=== PATIENT | female | born 1975 | race Caucasian/White ===

== ENCOUNTER → 2017-04-19 | Outpatient (CLI) | payer MEDICARE, MEDICAID, SELFPAY | PROVIDERS: Visit Provider Obstetrics & Gynecology | DX: R92.8 Other abnormal and inconclusive findings on diagnostic imaging of breast (principal) | CPT/HCPCS: 76641; 77065; G0206 ==

== ENCOUNTER → 2017-05-16 14:33 | Outpatient (CLI) | payer MEDICARE, SELFPAY ==
[2017-05-16 14:38] LABS: Microscopic, Urine URINE MICROSCOPIC (MICROSCOPIC)
[2017-05-16 14:49] LABS: Appearance,Urine CLEAR (Clear); Basophils # 0.1 K/mm3 (0-0.2); Basophils % 0.7 % (0.1-2.0); Bilirubin,Urine Negative (Negative); Blood, Urine TRACE-L (Negative); Color,Urine YELLOW (Yellow); Eosinophils # 0.2 K/mm3 (0.0-0.4); Eosinophils % 1.6 % (0.1-12.0); Glucose,Urine (UA) Negative (Negative); Hematocrit 35.8 % (37.0-47.0); Hemoglobin 10.9 g/dL (12.2-16.2); Ketones,Urine Negative (Negative); Leukocyte Esterase,Urine Negative (Negative); Lymphocytes # 2.8 K/mm3 (0.7-4.5); Mean Corpuscular HGB Conc 30.5 g/dL (31.8-35.4); Mean Corpuscular Volume 78.7 fl (81-99); Mean Platelet Volume 7.3 fl (7.4-10.4); Monocytes % 10.3 % (1.7-9.3); Neutrophils # 5.3 K/mm3 (1.8-7.8); Neutrophils % 57.3 % (37.0-80.0); Nitrate,Urine Negative (Negative); Platelet Count 381 K/mm3 (142-424); Protein,Urine Negative (Negative); Red Blood Count 4.55 M/mm3 (4.20-5.40); Specific Gravity, Urine 1.015 (1.005-1.030); Urobilinogen,Urine 0.2 EU/dl (0.2); White Blood Count 9.3 K/mm3 (4.8-10.8)
[2017-05-16 15:00] LABS: Urine Pregnancy, HCG Qual. Negative (Negative)
[2017-05-16 15:42] LABS: Bacteria,Urine Trace /lpf; RBC,Urine Occasional #/hpf (0-3); WBC,Urine Occasional #/hpf (0-3)
[2017-05-16 16:40] LABS: Alanine Aminotransferase 19 U/L (12-78); Albumin/Globulin Ratio 1.3 (1.1-1.8); Alkaline Phosphatase 74 U/L (46-116); Anion Gap 12.4 mEq/L (5-15); Aspartate Amino Transferase 15 U/L (15-37); Bilirubin,Total 0.3 mg/dL (0.2-1.0); Blood Urea Nitrogen 20 mg/dL (7-18); Calcium 9.2 mg/dL (8.5-10.1); Carbon Dioxide 25 mmol/L (21.0-32.0); Chloride 107 mmol/L (98-107); Creatinine,Serum 0.94 mg/dL (0.55-1.02); Estimated Glomerular Filt Rate > 60 ml/min (>60); GFR (African American) > 60 ML/MIN (>60); Globulin 3.1 gm/dl (1.3-3.2); Glucose 82 mg/dL (74-106); Potassium 4.4 mmoL/L (3.5-5.1); Sodium 140 mmol/L (136-145); Total Protein,Serum 7.1 gm/dL (6.4-8.2)
== END ==
PROVIDERS: PCP Physician Assistant; Visit Provider Obstetrics & Gynecology
DX: N94.89 Other specified conditions associated with female genital organs and menstrual cycle (principal); Z01.812 Encounter for preprocedural laboratory examination
CPT/HCPCS: 36415; 80053; 81001; 81025; 85025

== ENCOUNTER 2017-05-21 06:15 | Inpatient (IN) | payer MEDICARE, SELFPAY ==
[2017-05-16 15:00] VITALS: BMI 39.9
[2017-05-21] VITALS (24 sets, daily range): BP systolic 102–142; BP diastolic 59–91; PULSE 69–108; RESP 12–18; TEMP 36.6–43; O2SAT 95–99
--- NOTE | 2017-05-21 07:02 | HMH.ANESCL ---
[facility] Anesthesia Checklist - Structural Data Planned Operative Procedure/s: exploratory laparotomy, peritoneal washing, left so, appy Consent for Planned Operative Procedure(s) Verified: Yes Verified Documents: Surgical Consent - NPO Status Verified Time NPO: 00:00 - Airway Assessment C-Spine Mobility Assessed: Yes (MP2) TMJ Mobility Assessed: Yes Dentition: Good Dentition - Anesthesia Plan Anesthesia Risk discussed: Yes Anesthesia Plan: Verified ASA Class: II Anesthesia Type: General [facility] Anesthesia HX I have reviewed the patient's past medical history: Yes Medical History: Reports:: Asthma, Gastroesophageal Reflux Disease, Hyperlipidemia, Seizures (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 Ankle) *Family Hx:: Cancer, Coronary Artery Disease, Diabetes, Heart Attack, Hyperlipidemia, Hypertension
--- NOTE | 2017-05-21 07:05 | P.PN_ITS ---
[facility] Anesthesia Checklist - Structural Data Planned Operative Procedure/s: exploratory laparotomy, peritoneal washing, left so, appy Consent for Planned Operative Procedure(s) Verified: Yes Verified Documents: Surgical Consent - NPO Status Verified Time NPO: 00:00 - Airway Assessment C-Spine Mobility Assessed: Yes (MP2) TMJ Mobility Assessed: Yes Dentition: Good Dentition - Anesthesia Plan Anesthesia Risk discussed: Yes Anesthesia Plan: Verified ASA Class: II Anesthesia Type: General [facility] Anesthesia HX I have reviewed the patient's past medical history: Yes Medical History: Reports:: Asthma, Gastroesophageal Reflux Disease, Hyperlipidemia, Seizures (6-7 years ago-- AVM (frontal lobe)) Denies:: Diabetes Mellitus Type 1, Diabetes Mellitus Type 2 Other Medical History: Denies: Blood Transfusion Reaction Laterality Cases: Left: Other Other Surgeries: Yes: Other (1992-Lap CholecystX,1999-AVM rupture-Brain,2001- BTL ([facility]),2015- Rt. Ankle) *Family Hx:: Cancer, Coronary Artery Disease, Diabetes, Heart Attack, Hyperlipidemia, Hypertension
--- NOTE | 2017-05-21 09:18 | HMH.ANESI ---
[facility] Anesthesia Record Part I Intake, IV Amount: 1,500 Estimated blood loss (mL): 100 Urine output (mL): 300 Blood Pressure: 133/78 SaO2: 97 Pulse Rate: 69 Respiratory Rate: 12 Temperature: 97.8 F Patient is:: Awake, Stable Stable to PACU at:: 09:15
--- NOTE | 2017-05-21 09:19 | P.PN_ITS ---
[facility] Anesthesia Record Part II Discharge Time: 09:45 Destination: floor PACU nurse assessment reviewed?: Yes Patient Condition:: Good Anesthesia Complications:: None
--- NOTE | 2017-05-21 09:21 | P.OP_ITS ---
Date of procedure: 05/21/17 Pre-op Diagnosis:: 1. Pelvic pain. 2. Left adnexal mass. Post-op diagnosis:: same (Same, plus endometriosis) Procedure performed:: 1. Exploratory laparotomy. 2. Peritoneal washings. 3. Left salpingo-oophorectomy. 4. Fulguration of endometrial implants. Surgeon:: Cb Ramirez MD Deputy Director Of Nursing(s):: [place] Vo SENIOR J2EE DEVELOPER:: [address] Anesthesia: GETA Estimated blood loss (mL): 300 Operative findings:: Left adnexal mass, diffuse endometriotic implants. Operative note:: The patient was prepped and draped in usual fashion and general anesthesia was administered, a lower abdominal midline incision was made and taken down through fat and fascia in the usual fashion, bleeders being clamped and coagulated along the way. The peritoneum was entered with Metzenbaum scissors, and extended above and below. The upper abdomen was explored and found to be normal. The bowel was packed away, and a self-retaining Guevara retractor with bladder blade was placed. Peritoneal washings were carried out and submitted for cytology. The uterus was symmetrically enlarged and boggy, and with surface endometriotic implants. The right tube and ovary appeared normal. On the left side, the ovary was enlarged to 6 cm, and adherent to the left pelvic sidewall. The uterus was fixed in the pelvis. The left ovarian and infundibulopelvic ligament were crossclamped and cut, thus removing the left adnexa. Extensive adhesiolysis was carried out on both sides, and all visible endometriotic implants were fulgurated. The decision was made to leave the uterus and right adnexa in situ. There was no other pathology noted. The peritoneum was grasped with 3 Rosamaria clamps, and closed with a running simple locked suture of 0 Vicryl. The muscle was approximated with a running unlocked suture of 0 Vicryl. The fascia was closed with a running locked suture of #1 Vicryl. The subcutaneous fat and Wendy's fascia were closed with 2 layers of running unlocked 2-0 Vicryl. The skin was closed with a subcuticular suture of 3-0 Vicryl, and appropriately dressed. The urine was clear in the Edwards catheter. The sponge and needle count was correct. The estimated blood loss was 300 cc. The patient tolerated the procedure well, and was taken to PACU in excellent condition. She will be admitted postoperatively. Condition: stable Disposition: floor Specimens:: peritoneal washings, left adnexa Complications:: None
[2017-05-21 10:52] LABS: Hematocrit 32.1 % (37.0-47.0); Hemoglobin 10.1 g/dL (12.2-16.2)
--- NOTE | 2017-05-21 12:10 | HMH.PHAVTE ---
[facility] Pharmacy VTE Monitoring - Patient Demographics Admission date: 05/20/17 Report Date: 05/21/17 Time: 12:10 Allergies/Adverse Reactions: codeine Allergy (Intermediate, Verified 05/16/17 14:58) SOB morphine Adverse Reaction (Mild, Verified 05/16/17 14:58) upset stomach Height: 1.57 m Weight: 98.883 kg - VTE Risk Labs: VTE Related Lab Results Hgb 10.1 g/dL (12.2-16.2) L 05/21/17 10:23 Hct 32.1 % (37.0-47.0) L 05/21/17 10:23 Clinical Trial Participant: No - Prophylaxis Types of VTE Prophylaxis: IPCS Knee High Location of Applied Device: Bilateral Lower Extremeties Pharmacologic Type: Enoxaparin
--- NOTE | 2017-05-21 13:31 | HMH.ACPN ---
Internal Medicine - PN: Subj *Date: 05/21/17 *Time: 13:31 (This is day of surgery. Surgery has been explained to the patient. She is afebrile. Her urine output is good. She continues to have the headache that she has had in the past and I am going to get a consult with Dr. Wheatley while she is in-house. Impression: Stable.) Exam Vital signs and Labs for Last 24 Hours: Temp Pulse Resp BP Pulse Ox 98.2 F 108 H 17 129/78 96 05/21/17 12:41 05/21/17 12:41 05/21/17 12:41 05/21/17 12:41 05/21/17 12:41 Laboratory Results - last 24 hr 05/21/17 10:23: Hgb 10.1 L, Hct 32.1 L I & O for Last 24 hours: Intake & Output 05/19/17 05/20/17 05/21/17 05/22/17 11:59 11:59 11:59 11:59 Intake Total 1750 / 1750 Output Total 202 / 202 Balance 1548 / 1548
[2017-05-21 15:53] LABS: Microscopic,Cath URINE MICROSCOPIC (MICROSCOPIC)
[2017-05-21 16:06] LABS: Appearance,Urine/Cath CLEAR (Clear); Bilirubin,Cath Negative (Negative); Blood, Urine/Cath Negative (Negative); Color,Urine/Cath YELLOW (Yellow); Glucose,Urine/Cath (UA) Negative (Negative); Ketones,Urine/Cath Negative (Negative); Leukocyte Esterase,Cath Negative (Negative); Nitrate,Cath Negative (Negative); PH,Urine/Cath 7.5 (5.0-8.5); Protein,Urine/Cath Negative (Negative); Urobilinogen,Cath 0.2 EU/dl (0.2)
--- NOTE | 2017-05-21 16:15 | SUR.OPER ---
PROCEDURE PERFORMED: EXPLORATORY LAPAROTOMY, LEFT SALPINGO-OOPHERECTOMY, PERITONEAL WASHING, FULGARATION OF ENDOMETRIOSIS
[2017-05-21 16:29] LABS: Amorphous Sediment,Ur/Cath 1+ /lpf; Bacteria,Urine/Cath TRACE /lpf; Mucus,Urine/Cath 3+ /lpf; RBC,Urine/Cath Occasional # /hpf (0-3); WBC,Urine/Cath Occasional #/hpf (0-3)
[2017-05-22 03:45] VITALS: BP 113/55; PULSE 87; RESP 16; TEMP 37.1; O2SAT 98
--- NOTE | 2017-05-22 03:45 | PC.NURSE ---
Pt resting in bed at this time. Pt complained of incisional and left sided pain and abdominal cramping pt rating 8/10 on pain scale. prn pain medication given as well as scheduled torodol and phenergan for nausea. pt tolerated well. lungs clear to auscultate at this time. no cough noted. pt using incentive spirometer without difficulty. heart rate regular. abdominal dressing clean dry and intact. truong catheter patent and draining at bedside. ice water and apple juice provided per request no distress noted at this time will continue to monitor
--- NOTE | 2017-05-22 07:43 | HMH.ACPN ---
Internal Medicine - PN: Subj *Date: 05/22/17 *Time: 07:43 (This is postop day #1. Patient is afebrile. Vital signs stable. Wound clean. Abdomen soft. Urine output good. Edwards has been removed. Hemoglobin 10.1 g, but clinically stable. Impression: Stable.) Exam Vital signs and Labs for Last 24 Hours: Temp Pulse Resp BP Pulse Ox 98.8 F 87 16 113/55 98 05/22/17 03:45 05/22/17 03:45 05/22/17 03:45 05/22/17 03:45 05/22/17 03:45 Laboratory Results - last 24 hr 05/21/17 08:17: Urine Color Yellow, Urine Appearance Clear, Urine pH 7.5, Ur Specific [place] 1.010, Urine Protein Negative, Urine Glucose (UA) Negative, Urine Ketones Negative, Urine Blood Negative, Urine Nitrate Negative, Urine Bilirubin Negative, Urine Urobilinogen 0.2, Ur Leukocyte Esterase Negative, Urine RBC Occasional, Urine WBC Occasional, Ur Squamous Epith Cells 5-10, Urine Bacteria Trace 05/21/17 10:23: Hgb 10.1 L, Hct 32.1 L I & O for Last 24 hours: Intake & Output 05/19/17 05/20/17 05/21/17 05/22/17 11:59 11:59 11:59 11:59 Intake Total 1750 / 1750 1999 Output Total 202 / 3600 / 3600 Balance 1548 / 1548 -1600 / -1600
[2017-05-22 08:00] VITALS: BP 121/77; PULSE 89; RESP 15; TEMP 37.2; O2SAT 96; O2SAT 97
[2017-05-22 12:00] VITALS: BP 131/74; PULSE 90; RESP 15; TEMP 36.9; O2SAT 98
[2017-05-22 16:00] VITALS: BP 110/44; PULSE 92; RESP 15; TEMP 36.8; O2SAT 96
--- NOTE | 2017-05-22 16:02 | PC.NURSE ---
Called and spoke with Dr. Johns reported pt request for prilosec for acid reflux, new order for protonix 40 mg once a day. May also decrease LR to 50ml/hr, change IV dilaudid to 2mg PO every 4 hours PRN for pain.
--- NOTE | 2017-05-22 17:38 | HMH.CONS ---
*Admission Date: 05/20/17 *Chief complaint: Evaluate for headaches *History of present illness: 41-year-old white female admitted to SALES FORCE DEVELOPER service for oophorectomy, which was accomplished yesterday and so far has been uncomplicated. I am asked to consult because of her ongoing headache disorder. She has a long and complex history of headache disorders of her variety of types. 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 She apparently has not had radial neurosurgical follow-up in a while, and has been seeing Dr. Fredy Fernandez at [facility] who has thought part of her headache disorder might be from cervical spine disease, and is contemplating further workup for possible surgical intervention. She is maintained on Topamax with minimal effectiveness, and reports that even before her neurosurgery she had what sounds like complex migraines. She also has had episodes of presyncope and syncopal episodes and has been told she might a seizure disorder but has never had this worked up either. She has recently been in flux as far as her family physician goes and has not seen a primary care physician or thermometer maker over the past 4-5 years. 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 Ankle) Amputation: No - *Social History Educational Level: Attended College Smoking Status: Former smoker Tobacco Type: cigarettes Alcohol Intake: never Substance Use Type: denies use Occupational Status: unemployed, disabled Housing: house Household Members: spouse - Psychiatric History Expresses thoughts of harming self/others: None Suicide Plan Description: No Plan *Family Hx:: Cancer, Coronary Artery Disease, Diabetes, Heart Attack, Hyperlipidemia, Hypertension Review of Systems - Eyes Reports blurry vision, Denies blind spots, Denies change in vision, Denies double vision, Denies discharge, Denies dry eyes, Denies bulging eyes - ENT Reports neck pain, Denies abnormal hearing, Denies bleeding gums, Denies dry mouth, Denies nosebleed, Denies hearing loss, Denies nasal congestion - *Neurologic Reports seizure-like activity, Reports dizziness, Reports headache(s), Denies abnormal walking, Denies abnormal hearing, Denies abnormal movements Meds Home Medications Medication Instructions Recorded Confirmed Type bupropion HCl SR 150 mg tablet,12 150 mg PO BID tab 05/16/17 05/21/17 History hr sustained-release Albuterol Sulfate [Proventil-HFA 2 puffs IH Q4HP PRN 05/21/17 05/21/17 History 90mcg/puff Inh] Ibuprofen [Ibuprofen 800mg Tab] 800 mg PO BID 05/21/17 05/21/17 History Naloxegol Oxalate [Movantik] 25 mg PO DAILY 05/21/17 05/21/17 History Oxycodone HCl/Acetaminophen 1 tab PO TIDP PRN 05/21/17 05/21/17 History [Oxycodone W/Apap 325mg Tablet] Rosuvastatin Calcium [Rosuvastatin 20 mg PO HS 05/21/17 05/21/17 History Calcium] Allergies Allergy/AdvReac Type Severity Reaction Status Date / Time codeine Allergy Intermediate SOB Verified 05/16/17 14:58 morphine AdvReac Mild upset Verified 05/16/17 14:58 stomach Exam Vital signs and Labs for Last 24 Hours: Temp Pulse Resp BP Pulse Ox 98.3 F 92 H 15 110/44 96 05/22/17 16:00 05/22/17 16:00 05/22/17 16:00 05/22/17 16:00 05/22/17 16:00 Laboratory Results - last 24 hr 05/21/17 08:17: Urine Color Yellow, Urine Appearance Clear, Urine pH 7.5, Ur Specific [place] 1.010, Urine Protein Negative, Urine Glucose (UA) Negative, Urine Ketones Negative, Urine Blood Negative, Urine Nitrate Negati
--- NOTE | 2017-05-22 17:41 | P.CONS_ITS ---
*Admission Date: 05/20/17 *Chief complaint: Evaluate for headaches *History of present illness: 41-year-old white female admitted to REHABILITATION SERVICES COUNSELOR service for oophorectomy, which was accomplished yesterday and so far has been uncomplicated. I am asked to consult because of her ongoing headache disorder. She has a long and complex history of headache disorders of her variety of types. 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 She apparently has not had radial neurosurgical follow-up in a while , and has been seeing Dr. Fredy Fernandez at [facility] who has thought part of her headache disorder might be from cervical spine disease, and is contemplating further workup for possible surgical intervention. She is maintained on Topamax with minimal effectiveness, and reports that even before her neurosurgery she had what sounds like complex migraines. She also has had episodes of presyncope and syncopal episodes and has been told she might a seizure disorder but has never had this worked up either. She has recently been in flux as far as her family physician goes and has not seen a primary care physician or chick grader over the past 4-5 years. 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 Ankle) Amputation: No - *Social History Educational Level: Attended College Smoking Status: Former smoker Tobacco Type: cigarettes Alcohol Intake: never Substance Use Type: denies use Occupational Status: unemployed, disabled Housing: house Household Members: spouse - Psychiatric History Expresses thoughts of harming self/others: None Suicide Plan Description: No Plan *Family Hx:: Cancer, Coronary Artery Disease, Diabetes, Heart Attack, Hyperlipidemia, Hypertension Review of Systems - Eyes Reports blurry vision, Denies blind spots, Denies change in vision, Denies double vision, Denies discharge, Denies dry eyes, Denies bulging eyes - ENT Reports neck pain, Denies abnormal hearing, Denies bleeding gums, Denies dry mouth, Denies nosebleed, Denies hearing loss, Denies nasal congestion - *Neurologic Reports seizure-like activity, Reports dizziness, Reports headache(s), Denies abnormal walking, Denies abnormal hearing, Denies abnormal movements Meds Home Medications Medication Instructions Recorded Confirmed Type bupropion HCl SR 150 mg tablet,12 150 mg PO BID tab 05/16/17 05/21/17 History hr sustained-release Albuterol Sulfate [Proventil-HFA 2 puffs IH Q4HP PRN 05/21/17 05/21/17 History 90mcg/puff Inh] Ibuprofen [Ibuprofen 800mg Tab] 800 mg PO BID 05/21/17 05/21/17 History Naloxegol Oxalate [Movantik] 25 mg PO DAILY 05/21/17 05/21/17 History Oxycodone HCl/Acetaminophen 1 tab PO TIDP PRN 05/21/17 05/21/17 History [Oxycodone W/Apap 325mg Tablet] Rosuvastatin Calcium [Rosuvastatin 20 mg PO HS 05/21/17 05/21/17 History Calcium] Allergies Allergy/AdvReac Type Severity Reaction Status Date / Time codeine Allergy Intermediate SOB Verified 05/16/17 14:58 morphine AdvReac Mild upset Verified 05/16/17 14:58 stomach
[2017-05-22 20:15] VITALS: BP 115/62; PULSE 100; RESP 18; TEMP 37.2; O2SAT 96
[2017-05-23 04:27] VITALS: BP 112/67; PULSE 90; RESP 16; TEMP 37.1; O2SAT 99
--- NOTE | 2017-05-23 04:28 | PC.NURSE ---
pt stable, no change from previous assessment, pain controlled, adequate input and output, will continue to monitor
--- NOTE | 2017-05-23 07:14 | HMH.ACPN ---
Internal Medicine - PN: Subj *Date: 05/23/17 *Time: 07:14 (This is postop day #2. Patient is afebrile. Vital signs stable. Wound clean. Abdomen soft. Passing flatus. Ambulating well. Urine output good. Impression: Stable.) Exam Vital signs and Labs for Last 24 Hours: Temp Pulse Resp BP Pulse Ox 98.8 F 90 16 112/67 99 05/23/17 04:27 05/23/17 04:27 05/23/17 04:27 05/23/17 04:27 05/23/17 04:27 I & O for Last 24 hours: Intake & Output 05/20/17 05/21/17 05/22/17 05/23/17 11:59 11:59 11:59 11:59 Intake Total 1750 / 1750 2900 / 2900 2865 / 2865 Output Total / 4500 / 4500 800 / 800 Balance 1548 / 1548 -1600 / -1600 2064 / 2064
[2017-05-23 07:53] VITALS: BP 117/67; PULSE 90; RESP 16; TEMP 37.1; O2SAT 97
[2017-05-23 08:00] VITALS: O2SAT 98
--- NOTE | 2017-05-23 12:50 | HMH.ACPN ---
Internal Medicine - PN: Subj *Date: 05/23/17 (The patient is afebrile. Vital signs are stable. Wound clean. She is now passing flatus and has had a bowel movement. She is anxious for early discharge and will be discharged today.) *Time: 12:50 Exam Vital signs and Labs for Last 24 Hours: Temp Pulse Resp BP Pulse Ox 98.8 F 90 16 117/67 98 05/23/17 07:53 05/23/17 07:53 05/23/17 07:53 05/23/17 07:53 05/23/17 08:00 I & O for Last 24 hours: Intake & Output 05/21/17 05/22/17 05/23/17 05/24/17 11:59 11:59 11:59 11:59 Intake Total 1750 / 1750 2900 / 2900 3265 / 3265 Output Total 202 / 202 4500 / 4500 800 / 800 Balance 1548 / 1548 -1600 / -1600 2465 / 2465 Weight 211 lb 223 lb 8 oz 233 lb 6 oz
--- NOTE | 2017-05-23 12:51 | HMH.DCSUM ---
General - General Admission date: 05/20/17 Discharge date: 05/23/17 HPI HPI: 41-year-old white female admitted to LMSW service for oophorectomy, which was accomplished yesterday and so far has been uncomplicated. I am asked to consult because of her ongoing headache disorder. She has a long and complex history of headache disorders of her variety of types. 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 She apparently has not had radial neurosurgical follow-up in a while, and has been seeing Dr. Fredy Fernandez at [facility] who has thought part of her headache disorder might be from cervical spine disease, and is contemplating further workup for possible surgical intervention. She is maintained on Topamax with minimal effectiveness, and reports that even before her neurosurgery she had what sounds like complex migraines. She also has had episodes of presyncope and syncopal episodes and has been told she might a seizure disorder but has never had this worked up either. She has recently been in flux as far as her family physician goes and has not seen a primary care physician or cut out press operator over the past 4-5 years. Objective Vital signs: Temp Pulse Resp BP Pulse Ox 98.8 F 90 16 117/67 98 05/23/17 07:53 05/23/17 07:53 05/23/17 07:53 05/23/17 07:53 05/23/17 08:00 Hospital Course Hospital Course: This 41-year-old white female was admitted for definitive treatment of pelvic pain in the left adnexal mass. On the date of admission, she was taken to the operating room, where she underwent exploratory laparotomy with peritoneal washings and a left salpingo-oophorectomy. She is found to have significant endometriosis, and fulguration of implants was carried out. Postoperatively, the patient is done well. She is eating and ambulating and has had a bowel movement. Her wound is clean. Her abdomen is soft. Her hemoglobin is 10.1 g, but she is clinically stable. She is discharged home on the second postoperative day on Dilaudid 4 mg (#30) 1 p.o. every 6 hours as needed pain. She is given appropriate instructions as to diet, exercise, and wound care, and she is to return the office in 2 weeks. She is not a smoker. Meds Home Medications Medication Instructions Recorded Confirmed Type bupropion HCl SR 150 mg tablet,12 150 mg PO BID tab 05/16/17 05/21/17 History hr sustained-release Albuterol Sulfate [Proventil-HFA 2 puffs IH Q4HP PRN 05/21/17 05/21/17 History 90mcg/puff Inh] Ibuprofen [Ibuprofen 800mg Tab] 800 mg PO BID 05/21/17 05/21/17 History Naloxegol Oxalate [Movantik] 25 mg PO DAILY 05/21/17 05/21/17 History Oxycodone HCl/Acetaminophen 1 tab PO TIDP PRN 05/21/17 05/21/17 History [Oxycodone W/Apap 325mg Tablet] Rosuvastatin Calcium [Rosuvastatin 20 mg PO HS 05/21/17 05/21/17 History Calcium] Allergies Allergy/AdvReac Type Severity Reaction Status Date / Time codeine Allergy Intermediate SOB Verified 05/16/17 14:58 morphine AdvReac Mild upset Verified 05/16/17 14:58 stomach Discharge Plan - Patient Discharge Instructions Activity: Ambulate as Tolerated Diet: advance to your usual diet Additional Instructions: 1. Pelvic rest. 2. No heavy lifting. - Follow up Plan Follow up with: Cb Ramirez MD [Staff Physician] - 2 weeks Disposition: Home, Self-Skilled Nursing Medications: Home Medications Medication Instructions Recorded Confirmed Type bupropion HCl SR 150 mg tablet,12 150 mg PO BID tab 05/16/17 05/21/17 History hr sustained-release Albuterol Sulfate [Proventil-HFA 2 puffs IH Q4HP PRN 05/21/17 05/21/17 History 90mcg/puff Inh] Ibuprofen [Ibuprofen 800mg Tab] 800 mg PO BID 05/21/17 05/21/17 History Naloxegol Oxalate [Movantik] 25 mg PO DAILY 05/21/17 05/21/17 History Oxycodone HCl/Acetaminophen 1 tab PO TIDP PRN 01
[2017-05-23 13:00] VITALS: BP 140/69; PULSE 92; RESP 16; TEMP 37.2; O2SAT 98
--- NOTE | 2017-05-23 14:40 | PC.NURSE ---
Completed discharge instructions, pt verbalized understanding, sending rx to pharmacy for meds to bed. No questions or concerns, follow up with Dr. Ramirez 06-04;
== END 2017-05-23 15:28 | disposition home or self-care (01) | DRG 743 ==
LOC: 2ND 09:18 → OB 10:31
PROVIDERS: Admitting Provider Obstetrics & Gynecology; Family Provider Physician Assistant; PCP Physician Assistant; Visit Provider Obstetrics & Gynecology
PROC: 0U590ZZ Destruction of Uterus, Open Approach (ICD-10-PCS; CPT 49000; principal; 2017-05-21 07:30)
PROC: 0U590ZZ Destruction of Uterus, Open Approach (ICD-10-PCS; 2017-05-21 07:30)
DX: N80.0 Endometriosis of uterus (principal); N80.8 Other endometriosis; R19.09 Other intra-abdominal and pelvic swelling, mass and lump
CPT/HCPCS: 58720; 36415; 81001; 85014; 85018; 88112; 88305; 96372; 96374; J0131; J2405; J2710

== ENCOUNTER → 2021-03-30 15:25 | Outpatient (CLI) | payer MEDICARE, SELFPAY | PROVIDERS: PCP Nurse Practitioner Family; Visit Provider Nurse Practitioner | DX: Z20.822 Contact with and (suspected) exposure to COVID-19 (principal) | CPT/HCPCS: C9803; U0003; U0005 ==

== ENCOUNTER → 2022-06-22 14:15 | Outpatient (CLI) | payer MEDICARE, MEDICAID, SELFPAY ==
--- NOTE | 2022-06-22 14:20 | MM_ITS ---
PROCEDURE INFORMATION: Exam: MG Bilateral Diagnostic Breast Tomosynthesis Exam date and time: 06/22/2022 2:22 PM Age: 46 years old Clinical indication: Concern for left breast lump. Her paternal great grandmother had breast cancer. TECHNIQUE: Imaging protocol: Bilateral Diagnostic tomosynthesis and 2D mammography including computer-aided detection (CAD) when performed. Unilateral or bilateral exam. Triangular skin marker placed at the area of clinical concern and spot compression added. COMPARISON: 1. MG DMDXUAVR DIG MAMM-DX UNI A/VW-RT W/CAD 04/19/2017 3:02 PM 2. MG DMSB DIG MAMM-SCREEN HAROON W/CAD 03/29/2017 11:00 AM 3. BL US BREAST-LT COMPLETE W/AXILLA 04/19/2017 2:39 PM 4. BR US BREAST-RT COMPLETE W/AXILLA 04/19/2017 2:28 PM FINDINGS: MAMMOGRAPHY: The breasts are heterogeneously dense, which may obscure small masses. Mass: At the palpable concern in the left lower inner quadrant, posterior 3rd, possible 0.5 cm faint mass/asymmetry in the craniocaudal caudad projection close to or in the skin as well as possibly 0.5 cm oval mass. Architectural distortion: None. Calcifications: No suspicious calcifications. Asymmetric density: None. Skin thickening: None. Lymph nodes: None. IMPRESSION: Patient will be recalled for right sonography for further evaluation of mass related to the skin and possible 0.5 cm oval mass/asymmetry at the palpable concern in the left lower inner quadrant posterior 3rd. ASSESSMENT: BI-RADS Category 0: Incomplete- Need Additional Imaging Evaluation and/or Prior Mammograms for Comparison
== END ==
PROVIDERS: PCP Nurse Practitioner Family; Visit Provider Nurse Practitioner Family
DX: N63.24 Unspecified lump in the left breast, lower inner quadrant (principal)
CPT/HCPCS: 77062; 77066; G0279

== ENCOUNTER 2022-09-19 23:25 | Emergency (ER) | payer MEDICARE, MEDICAID, SELFPAY ==
[2022-09-20] VITALS (10 sets, daily range): BP systolic 118–157; BP diastolic 53–91; PULSE 62–78; RESP 18–20; TEMP 36.6–36.8; O2SAT 98–100; BMI 37.1
--- NOTE | 2022-09-20 00:28 | XR_ITS ---
PROCEDURE INFORMATION: Exam: XR Chest Exam date and time: 09/20/2022 12:41 AM Age: 46 years old Clinical indication: Shortness of breath TECHNIQUE: Imaging protocol: Radiologic exam of the chest. Views: 2 views. COMPARISON: No relevant prior studies available. FINDINGS: Lungs: Unremarkable. No consolidation. Pleural spaces: Unremarkable. No pleural effusion. No pneumothorax. Heart/Mediastinum: Unremarkable. No cardiomegaly. Vasculature: Unremarkable. Bones/joints: Unremarkable. IMPRESSION: No acute findings.
[2022-09-20 00:34] LABS: Basophils # 0.1 K/mm3 (0-0.2); Basophils % 0.5 % (0.1-2.0); Eosinophils # 0.4 K/mm3 (0.0-0.4); Eosinophils % 3.4 % (0.1-12.0); Hematocrit 42.9 % (37.0-47.0); Hemoglobin 13.6 g/dL (12.2-16.2); Lymphocytes # 3.3 K/mm3 (0.7-4.5); Lymphocytes % 27.6 % (10-50); Mean Corpuscular HGB Conc 31.7 g/dL (31.8-35.4); Mean Corpuscular Hemoglobin 27.5 pg (27.0-31.2); Mean Corpuscular Volume 86.7 fl (81-99); Mean Platelet Volume 7.9 fl (7.4-10.4); Monocytes # 1.2 K/mm3 (0.1-1.0); Monocytes % 9.6 % (1.7-9.3); Neutrophils # 7.1 K/mm3 (1.8-7.8); Neutrophils % 58.9 % (37.0-80.0); Platelet Count 368 K/mm3 (142-424); Red Blood Count 4.94 M/mm3 (4.20-5.40); Red Cell Distribution Width 13.4 % (11.5-17.5); White Blood Count 12.1 K/mm3 (4.8-10.8)
[2022-09-20 00:57] LABS: Chloride 101 mmol/L (98-107); Sodium 143 mmol/L (136-145)
[2022-09-20 01:00] LABS: Alanine Aminotransferase 25 U/L (12-78); Albumin/Globulin Ratio 1.4 (1.1-1.8); Alkaline Phosphatase 82 U/L (38-126); Aspartate Amino Transferase 30 U/L (14-36); Blood Urea Nitrogen 20 mg/dl (7-17); Calcium 9.1 mg/dl (8.4-10.2); Carbon Dioxide 30 mmol/L (22.0-30.0); Creatinine Clearance Estimated 128 mL/min (50-200); Estimated Glomerular Filt Rate 77 ml/min (>60); GFR (African American) 93 ML/MIN (>60); Globulin 2.8 g/dL (1.3-3.2); Glucose 97 mg/dl (74-100); Total Protein,Serum 6.8 g/dl (6.3-8.2)
[2022-09-20 01:01] LABS: Bilirubin,Total < 0.1 mg/dl (0.2-1.3)
--- NOTE | 2022-09-20 01:49 | CT_ITS ---
PROCEDURE INFORMATION: Exam: CTA Chest With Contrast Exam date and time: 09/20/2022 2:10 AM Age: 46 years old Clinical indication: Shortness of breath; Patient HX: States possible blood clot in right arm Saturday, C/O SOA TECHNIQUE: Imaging protocol: Computed tomographic angiography of the chest with contrast. 3D rendering (Not supervised by radiologist): MIP and/or 3D reconstructed images were created by the technologist. Radiation optimization: All CT scans at this facility use at least one of these dose optimization techniques: automated exposure control; mA and/or kV adjustment per patient size (includes targeted exams where dose is matched to clinical indication); or iterative reconstruction. Contrast material: ISOVUE; Contrast volume: 70 ml; Contrast route: INTRAVENOUS (IV); REPORTING DATA: Count of CT and Cardiac NM exams in prior 12 months: This patient has received 0 known CTs and 0 known cardiac nuclear medicine studies in the 12 months prior to the current study. COMPARISON: CR XR CHEST 2V 09/20/2022 12:41 AM FINDINGS: Pulmonary arteries: Normal. No pulmonary emboli. Aorta: Unremarkable. No aortic aneurysm. No aortic dissection. Celiac trunk and mesenteric arteries: Narrowing of the proximal celiac axis with configuration raising suspicion for median arcuate ligament syndrome. Lungs: Unremarkable. No consolidation. No masses. Pleural spaces: Unremarkable. No pneumothorax. No pleural effusion. Heart: Unremarkable. No cardiomegaly. No pericardial effusion. Lymph nodes: Unremarkable. No enlarged lymph nodes. Gallbladder and bile ducts: The gallbladder is absent. There is no biliary ductal dilation. Bones/joints: Unremarkable. No acute fracture. Soft tissues: Unremarkable. IMPRESSION: 1. No acute findings. No pulmonary embolus. 2. Narrowing of the proximal celiac axis with configuration raising the suspicion for median arcuate ligament syndrome. Nonemergent follow-up with arterial duplex could be performed as clinically indicated.
--- NOTE | 2022-09-20 01:54 | CT_ITS ---
PROCEDURE INFORMATION: Exam: CT Head Without Contrast Exam date and time: 09/20/2022 2:07 AM Age: 46 years old Clinical indication: Weakness, facial; Prior surgery; Surgery date: 6+ months; Surgery type: Avm; Additional info: Facial droop yesterday TECHNIQUE: Imaging protocol: Computed tomography of the head without contrast. Radiation optimization: All CT scans at this facility use at least one of these dose optimization techniques: automated exposure control; mA and/or kV adjustment per patient size (includes targeted exams where dose is matched to clinical indication); or iterative reconstruction. REPORTING DATA: Count of CT and Cardiac NM exams in prior 12 months: This patient has received 0 known CTs and 0 known cardiac nuclear medicine studies in the 12 months prior to the current study. COMPARISON: No relevant prior studies available. FINDINGS: Tubes, catheters and devices: Focal encephalomalacia and gliosis in the inferior right frontal lobe, with adjacent embolization coils and a vascular clip. Brain: No acute intracranial hemorrhage. No acute large territory infarct. Cerebral ventricles: No ventriculomegaly. Paranasal sinuses: Minimal mucosal thickening in the left sphenoid sinus. No air-fluid levels. Mastoid air cells: Visualized mastoid air cells are well aerated. Bones/joints: Postoperative changes from right frontal craniectomy. No acute fracture. Soft tissues: Unremarkable. IMPRESSION: 1. No acute intracranial abnormality identified. 2. Focal encephalomalacia and gliosis in the inferior right frontal lobe, with adjacent embolization coils and a vascular clip. Most likely postoperative changes from reported AVM surgery.
--- NOTE | 2022-09-20 01:55 | [facility].EDSOB ---
Discharge Plan Disposition Patient Disposition: Home, Self-Care Prescriptions Prescriptions: No Action atorvastatin 40 mg tablet 40 mg PO DAILY Label Comments: TAKE 1 TABLET BY MOUTH EVERY DAY aspirin 81 mg Tablet 81 mg PO DAILY fenofibrate 160 mg tablet 160 mg PO DAILY Label Comments: TAKE 1 TABLET BY MOUTH EVERY DAY Referrals Follow up/Referrals: Dolores Lyons APRN [Primary Care Provider] - See instructions Drea Sheth MD [Staff Physician] - See instructions Clinical Impressions Clinical Impression: TIA (transient ischemic attack), History of arteriovenous malformation (AVM) Instructions Patient Instructions: DI for Transient Ischemic Attack Discharge ED Provider: Robyn (ED)Venkata Resp/SOB HPI General Chief Complaint: Shortness of Breath/Dyspnea Stated Complaint: SOA, advised by nurse to come and be checked Time Seen by Provider: 09/20/22 01:55 Mode of Arrival: Ambulatory Source of Information: Patient and Medical Record Limitations: No Limitations Description of Symptoms (Recalled from ER Triage Doc. by RN): Pt arives via private vehicle. States that she was mowing her yard Saturday when she got hot and went to bed. Says when she woke up Saturday she had a knot on the inside of her right arm, called her health insurance nurse and sent her the picture. Insurance nurse told patient it was a blood clot so she took baby aspirin and it went away. Patient states that the next morning (Saturday) in [employer] another nurse told her it was a blood clot as well. Says it was red and she couldnt find a pulse. Says that she also had a right sided facial droop Saturday that occured while arguing with her grandson and she began stuttering. Says that the stuttering has gotten better but now she is short of breath. There is also mild bruising noted on her right inner arm where the patient states that the blood clot was. History of Present Illness pt reports not feeling well since saturday - nonspecific - pt with hx of rt sided facial drop for 6 hrs about 24 hrs ago - some reported stuttering also - sx resolved - no other motor/visual sx and no sensory loss - at baseline now except sob but no chest pain Complaint: shortness of breath Onset (ago): day(s) Severity: moderate Consistency/Duration: now resolved Associated symptoms: denies other symptoms Treatment prior to arrival: aspirin Related Data Home oxygen amount: none Home Medications Medication Instructions Recorded Confirmed aspirin 81 mg tablet 81 mg PO DAILY heart health 09/20/22 09/20/22 atorvastatin 40 mg tablet 40 mg PO DAILY Cholesterol 09/20/22 09/20/22 fenofibrate 160 mg tablet 160 mg PO DAILY Cholesterol 09/20/22 09/20/22 Allergies Allergy/AdvReac Type Severity Reaction Status Date / Time codeine Allergy Intermediate SOB Verified 06/21/17 10:22 morphine AdvReac Mild upset Verified 06/21/17 10:22 stomach Well's Criteria PE Score Clinical signs/symptoms of DVT: No PE is #1 diagnosis or equally likely: Yes Heart rate is > 100: No Immobile at least 3 days, or surgery in past 4 wks: No Previously, obj. diagnosed PE or DVT: No Hemoptysis: No Malignancy w/Rx within 6mo, or palliative: No PE Score: 3 Risk of Pulmonary Embolism by score: >3 pts=Hi Risk (78%) [facility] Disclaimer: The information contained in this section may have been updated after the patient was seen, as this information can be updated by other users. Social History Smoking Status: Current every day smoker tobacco type: cigarettes packs per day: 1 alcohol intake: never counseling provided: none substance use type: denies use current occupational status: unemployed and disabled Travel in the last 8 weeks: None household members: spouse housing: house current occupational exposures/hazards: No caffeine: Yes ROS Obtained: Yes All systems reviewed & no additional complaints except as documented Physical Exam General General appe
[2022-09-20 02:16] LABS: Hemoglobin A1C 5.7 % (4.0-6.0)
== END 2022-09-20 05:05 | disposition home or self-care (01) ==
PROVIDERS: Emergency Provider Emergency Medicine; PCP Nurse Practitioner Family
DX: G45.9 Transient cerebral ischemic attack, unspecified (principal); R06.02 Shortness of breath; F17.210 Nicotine dependence, cigarettes, uncomplicated
CPT/HCPCS: 70450; 71046; 71275; 80053; 83036; 85025; 99285; Q9967